=== PATIENT | female | born 1940 | race Caucasian/White ===

== ENCOUNTER 2017-02-13 13:33 | Emergency (ER) | payer MEDICARE, BC ==
[~2017-02-13] VITALS: Wt 55.0 kg
[2017-02-13] MEDS ORDERED: DIPHTH/TET/ACEL PERTUSS (ADULT) 0.5 ML VIAL IM* ONE (14:00)
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
[2017-02-13] MEDS ORDERED: IBUP400T22 PO (14:48)
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
[2017-02-13 15:20] VITALS: BP 154/71; PULSE 81; RESP 18; TEMP 98
== END 2017-02-13 15:20 | disposition home or self-care (01) ==
LOC: FTE 13:33
DX: R91.1 Solitary pulmonary nodule (principal); S00.83XA Contusion of other part of head, initial encounter; I10 Essential (primary) hypertension; I25.10 Atherosclerotic heart disease of native coronary artery without angina pectoris; V89.2XXA Person injured in unspecified motor-vehicle accident, traffic, initial encounter; Z23 Encounter for immunization
CPT/HCPCS: 70450; 70486; 71010; 90471; 90715

== ENCOUNTER → 2017-02-16 | Outpatient (CLI) | payer MEDICARE, BC ==
[~2017-02-16] MED LIST: IBUP400T22 PO
--- NOTE | 2017-02-16 18:16 | RADRPT ---
PROCEDURE: CT Chest. CLINICAL INDICATION: Follow-up previously noted left upper lobe lung nodule. TECHNIQUE: CT scan of the chest without contrast was performed on the [employer] [place] CT scanner at [facility]. Sagittal and coronal reformatted images were obtained from the axial [facility] e images. The CTDIvol is 4.73 mGy and the DLP is 188.63 mGycm. One of the following 3 dose reduction techniques were used: Automated exposure control; adjustment of the mA and/or kV according to patient size; or use of iterative reconstruction technique. COMPARISON: PA Chest x-ray dated 02/13/2017 FINDINGS: Visualized base of the neck and bilateral thyroid lobes are normal. The lungs are remarkable for no evidence for pulmonary nodules present. Specifically no nodules in the left upper lobe corresponding to findings on PA chest x-ray. Scarring is noted in the lingula a nd the bilateral lung bases. No pleural effusions or pneumothorax is present. The tracheobronchial tree appears normal. The mediastinum is unremarkable without evidence for mass or lymphadenopathy. The vascular structur es of the mediastinum are normal in course and caliber. Aortic vascular calcifications and coronary artery calcifications are present. The heart size is normal without evidence for pericardial thicke michelle or effusion. The visualized liver demonstrates multiple foci of low attenuation in the periphery of the right and left hepatic lobes incompletely identified. These are most likely cysts however too small to jc cterize. Consider hepatic ultrasound and/or dynamic hepatic CT with contrast . The visualized splee n, gallbladder, and bilateral adrenal glands are normal. The pancreas demonstrates pancreatic body calcification and correlate with prior pancreatitis. The imaged kidneys are normal. The imaged osse ous structures demonstrate degenerative spondylosis of the imaged spine with vertebroplasty changes at the L1 level. Chronic compression fracture deformity is noted at this level with 50% vertebral b matthew height loss. The axillary regions, subpectoral regions, and supraclavicular regions are all unremarkable. IMPRESSION: 1. No evidence for pulmonary nodules corresponding to nodular density noted on chest x-ray. 2. Scarring in the lingula and bilateral lung bases 3. Atherosclerotic vascular disease 4. Multiple too small to characterize hepatic low attenuating lesions. Consider hepatic ultrasound or dynamic CT or MR to further characterize. 5. Chronic L1 vertebral body compression fractures status post vertebral plasty. RPTAT: [facility] .Krystina Ham MD, MD Date Time Electronically viewed and signed by .Krystina Ham MD, MD on 02/16/2017 18:16 .C/
== END | disposition home or self-care (01) ==
LOC: C/S 10:58
PROVIDERS: ATTEND Internal Medicine
DX: R91.1 Solitary pulmonary nodule (principal); I70.90 Unspecified atherosclerosis
CPT/HCPCS: 71250

== ENCOUNTER → 2017-02-23 | Outpatient (CLI) | payer MEDICARE, BC ==
--- NOTE | 2017-02-23 10:44 | RADRPT ---
PROCEDURE: Right upper quadrant abdominal ultrasound. CLINICAL INDICATION: Abdominal pain, liver cyst TECHNIQUE: Bullock scale and color doppler ultrasound images of the right upper quadrant. COMPARISON: None FINDINGS: Pancreas: Visualized portions appear of normal echogenicity, no focal lesions. Liver: Morphology: Normal in size and contour. Echogenicity: Normal. Focal lesions: None. Main portal vein: Patent with hepatopetal flow. Biliary System: Normal appearing gallbladder wall. Single gallstone seen layering within the gallbladder. No intrahepatic biliary dilatation. Common bile duct measures 10.2 mm in maximal dimension. Kidneys: Right 9.3 cm in length. Right renal cortical thickness is preserved. Normal echogenicity. No hydronephrosis. No renal calculi. No focal lesions. No free fluid identified. IMPRESSION: Cholelithiasis without evidence of abnormal gallbladder wall thickening to suggest cholecystitis. No evidence of intrahepatic biliary dilatation. Moderate dilatation of the extrahepatic biliary sys tem of uncertain etiology, choledocholithiasis cannot be excluded. MRCP may be useful for further e valuation. No focal hepatic lesions or cysts are seen. RPTAT: [facility] .Houston Crum MD, MD Date Time Electronically viewed and signed by .Houston Crum MD, on 02/23/2017 10:43 .B/
== END | disposition home or self-care (01) ==
LOC: U/S 07:56
PROVIDERS: ATTEND Internal Medicine
DX: K76.89 Other specified diseases of liver (principal); K80.20 Calculus of gallbladder without cholecystitis without obstruction
CPT/HCPCS: 76705

== ENCOUNTER → 2018-11-16 | Outpatient (CLI) | END | disposition home or self-care (01) ==